=== PATIENT | male | born 1960 | race African-American/Black ===

== ENCOUNTER 2021-03-06 23:52 | Emergency (ER) | payer OTHER ==
[~2021-03-06] VITALS: Ht 198.1 cm; Wt 104.3 kg
[~2021-03-06 23:52] MED LIST: ACYCLOVIR 800800 MG PO; ANXIETY MED; MEDROLDOSEPACK PO; NAPROSYN500 MG PO; NORCO 5-325 TA1 EACH PO
[2021-03-07] MEDS ORDERED: XARELTO20 MG PO (00:23)
[2021-03-07 00:40] LABS: ABSOLUTE NEUTROPHILS 5.6 thou/uL (1.4-8.2); BASOPHILS 0.3 % (0.0-2.0); EOSINOPHILS 0.1 % (0.0-3.0); HEMATOCRIT 41.5 % (42.0-52.0); HEMOGLOBIN 13.7 gm/dL (14.0-18.0); LYMPHOCYTES 14.1 % (24.0-44.0); MCHC 32.9 g/dL (28.0-37.0); MONOCYTES 6.6 % (1.0-8.0); PLATELET COUNT 266 thou/uL (150-400); POLYS 78.9 % (36.0-66.0); RBC 4.72 mil/uL (4.50-6.00); RDW 15.1 % (10.5-14.5); WBC 7.1 thou/uL (4.0-11.0)
[2021-03-07 00:44] LABS: CALCIUM 7.9 mg/dL (8.5-10.1); CREATININE 1.2 mg/dL (0.7-1.3); POTASSIUM 3.3 mmol/L (3.5-5.1)
[2021-03-07 00:46] LABS: APTT 24.5 Seconds (24.5-32.8); INR 1.03; PROTIME 11.2 Seconds (10.5-12.1)
[2021-03-07 01:05] LABS: ALBUMIN 3.6 g/dL (3.4-5.0); DIRECT BILIRUBIN 0.1 mg/dL (<0.1-0.2); TOTAL BILIRUBIN 0.5 mg/dL (0.2-1.0); TOTAL PROTEIN 7.3 g/dL (6.4-8.2)
[2021-03-07 03:00] VITALS: BP 131/40
== END 2021-03-07 03:00 | disposition home or self-care (01) ==
LOC: ER 23:52
PROVIDERS: Emergency Medicine
DX: M62.82 Rhabdomyolysis (principal); E86.0 Dehydration; F32.9 Major depressive disorder, single episode, unspecified; F41.9 Anxiety disorder, unspecified; F17.210 Nicotine dependence, cigarettes, uncomplicated; Z86.711 Personal history of pulmonary embolism; Z79.899 Other long term (current) drug therapy